=== PATIENT | female | born 1950 | race Caucasian/White ===

== ENCOUNTER 2019-11-18 06:03 | Observation (INO) ==
--- NOTE | 2019-11-16 14:25 | Anesthesiology Consultation ---
Date of Service November 16, 2019 Assessment & Plan (1) Encounter for pre-operative examination: Chart Review Chart Review: Acceptable Risk for Surgery and Patient NOT seen in Pre Admission Testing Per nursing assessment 11/16/19, pt resides in [facility]. Travels to [facility] to visit family. Wears mask in public and uses good hand hygiene. Covid testing 11/15/19= negative History Surgery Operation Date: 11/18/19 10:20 Proposed Procedures p Right Hip Gluteus Medius Repair with Gluteus Cody Tendon Transfer - Bhupendra Ramey Height/Weight Height: 5 ft 3 in Weight: 81.647 kg Allergies Allergy/AdvReac Type Severity Reaction Status Date / Time bee venom protein (honey bee) Allergy Severe Anaphylaxis Verified 11/16/19 13:17 morphine Allergy Intermediate HIVES Verified 11/16/19 13:17 Gumreid-Jqi-Wab Reductase AdvReac Intermediate MUSCLE Verified 11/16/19 13:17 Inhibitor ACHES, JOINT PAIN Medications Home Medications Medication Instructions Recorded Confirmed Last Taken ascorbic acid (vitamin C) [Vitamin 1 g PO QAM 11/16/19 11/16/19 Unknown C] calcium carbonate [Calcium 500] 500 mg PO QAM 11/16/19 11/16/19 Unknown conjugated estrogens [Premarin] 1.25 mg PO HS 11/16/19 11/16/19 Unknown levothyroxine 75 mcg PO QAM 11/16/19 11/16/19 Unknown multivitamin 1 tab PO QAM 11/16/19 11/16/19 Unknown naproxen sodium [Aleve] 220 mg PO BID PRN 11/16/19 11/16/19 Unknown omega 6-[id number]-vkc-fish oil [[place]-3] 1 cap PO QAM 11/16/19 11/16/19 Unknown Past Medical History Medical History History of migraine Hyperlipidemia Hypothyroidism Sinus pressure "HEADACHE" Past Family History Family History Father Family history of esophageal cancer Past Surgical History Surgical History Fusion of spine LUMBAR H/O total hysterectomy History of anesthesia reaction BP DROPS, DIFFICULTY WAKING UP History of cholecystectomy History of colon surgery ? 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 Compared to EKG from August 13, 2001- no significant change per cardio
[~2019-11-18 06:03] MED LIST: CEFAZOLIN 2000MG 2,000 MG/15 ML SYR IV SCH; LR 15ML/HR IV SCH; LR 60ML/HR IV SCH
[2019-11-18] MEDS ORDERED: BUPIVACAINE 0.5 % 5 MG/1 ML PF 10ML VIAL ONE (06:27)
--- NOTE | 2019-11-18 07:17 | History & Physical Bridge Note ---
Date of Service November 18, 2019 History & Physical Bridge Note I have examined the patient, reviewed the History & Physical and in the interval since the performance of the History & Physical I have noted the following changes of clinical significance: no changes noted Patient is aware of COVID-19 risks. Patient is asymptomatic of any COVID-19 symptoms. Patient has been tested for COVID-19.
[2019-11-18] MEDS ORDERED: PROPOFOL IV EMULSION 10 MG/ML 20 ML VIAL IV ONE (07:20)
[2019-11-18] MEDS ORDERED: LIDOCAINE HCL 2% 2 ML VIAL/AMP(20MG/ML) INFIL ONE (07:20)
[2019-11-18] MEDS ORDERED: DEXAMETHASONE SOD INJ 4 MG/ML VIAL ONE (07:20)
[2019-11-18] MEDS ORDERED: ONDANSETRON INJ 2 MG/ML 2 ML VIAL ONE (07:20)
[2019-11-18] MEDS ORDERED: ROCURONIUM BROMIDE 10 MG/ML 5 ML VIAL IV ONE ×2 (07:20→10:00)
[2019-11-18] MEDS ORDERED: MIDAZOLAM HCL 1 MG/ML 2ML VIAL ONE (07:21)
[2019-11-18] MEDS ORDERED: fentaNYL citrate 100 MCG/2 ML VIAL ONE ×2 (07:22)
[2019-11-18] MEDS ORDERED: ePHEDrine sulfate 50 MG/ML AMP IV PRN (07:44)
[2019-11-18] MEDS ORDERED: ATROPINE SULFATE 0.1 MG/ML 10ML SYR IV PRN (07:44)
[2019-11-18] MEDS ORDERED: ONDANSETRON INJ 2 MG/ML 2 ML VIAL IV PRN (07:44)
[2019-11-18] MEDS ORDERED: EPINEPHrine INJ 1 MG/ML AMP ONE (08:56)
[2019-11-18] MEDS ORDERED: BUPIVACAINE 0.5 % 5 MG/1 ML MPF 30ML VIAL ONE (08:56)
[2019-11-18] MEDS ORDERED: ePHEDrine sulfate 50 MG/ML SYR ONE (09:28)
[2019-11-18] MEDS ORDERED: PHENYLEPHRINE 100MCG/ML 5ML SYR ONE (09:28)
[2019-11-18] MEDS ORDERED: NEOSTIGMINE METHYLSULFATE 5 MG/5 ML SYR ONE (11:04)
[2019-11-18] MEDS ORDERED: GLYCOPYRROLATE 0.2 MG/ML VIAL ONE (11:04)
--- NOTE | 2019-11-18 11:23 | Post Operative Brief Note ---
PG Immediate Post Op with CF Date of Surgery November 18, 2019 Pre & Post Diagnosis Operation Date: 11/18/19 07:40 Pre-Op Diagnosis: Tear of Right Gluteus Medius Tendon. Post-Op Diagnosis: Tear of Right Gluteus Medius Tendon. I identified the patient and participated in the time-out.: Yes Procedure Operation Date: 11/18/19 07:40 Actual Procedures p Right Hip Gluteus Medius Repair with Gluteus Cody Tendon Transfer(Right) - Bhupendra Ramey Surgeon Bhupendra Ramey Media/Instructional Designer RAYA Bailon Estimated Blood Loss 25 Findings Consistent with Post-Op Diagnosis Specimens Specimen Description: none per surgeon
[2019-11-18] MEDS: fentaNYL citrate 100 MCG/2 ML VIAL IV PRN ×2 (11:49→11:56)
[2019-11-18] MEDS ORDERED: PROMETHAZINE HCL 6.25 MG in SODIUM CHLORIDE 0.9% 50 ML IV STA (11:50)
[2019-11-18] MEDS: HYDROmorphone INJ 2 MG/ML SYR/VIAL IV PRN ×3 (12:12→12:27)
--- NOTE | 2019-11-18 12:33 | Anesthesiology Progress Note ---
Date of Service November 18, 2019 Anesthesia Post Procedure Vital Signs Vital Signs: Temp Pulse Pulse Resp BP BP Pulse Ox 11/18/19 12:30 80 16 151/74 H 93 11/18/19 12:20 76 18 152/85 H 94 11/18/19 12:10 77 14 160/77 H 94 11/18/19 12:00 78 12 164/76 H 96 11/18/19 11:50 75 13 169/81 H 97 11/18/19 11:43 36.9 C 80 15 183/76 H 95 11/18/19 06:35 36.9 C 82 18 180/84 H 96 Pain Intensity Right Hip: Pain Intensity: 0 Right Upper Leg: Pain Intensity: 7 Transfer of Care Handoff Completed per policy Notes Mental Status: alert / awake / arousable and participated in evaluation Patient Amnestic to Procedure: Yes Nausea / Vomiting: improving with treatment Pain: improving with treatment Airway Patency, RR, SpO2: stable & adequate BP & HR: stable & adequate Hydration State: stable & adequate Anesthetic Complications: no major complications apparent and Pt Satisfied with anesthetic care
--- NOTE | 2019-11-18 12:37 | Operative Report ---
PG Post Operative Report Pre & Post Diagnosis Operation Date: 11/18/19 07:40 Pre-Op Diagnosis: Tear of Right Gluteus Medius Tendon. Post-Op Diagnosis: Tear of Right Gluteus Medius Tendon. I identified the patient and participated in the time-out.: Yes Procedure Operation Date: 11/18/19 07:40 Actual Procedures p Right Hip Gluteus Medius Repair with Gluteus Cody Tendon Transfer(Right) - Bhupendra Ramey Surgeon Bhupendra Ramey Animal Health Technician RAYA Bailon Estimated Blood Loss 25 Findings See Below The greater tuberosity gluteal footprint was essentially empty with significant enthesopathy. The medius tendon was atrophic and retracted however did not have enough excursion to restore the footprint. The muscle belly appeared to be healthy. The minimus had evidence of tendinopathy but was inserted well. The medius tendon was repaired using a running locking FiberWire stitch to a proximal row with fiber tape used as a speed bridge double row construct that incorporated a sling of the anterior third of the gluteus cody. 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 She was referred to me as a third opinion. She presented with a Trendelenburg gait and substantial hip abduction weakness. 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 We discussed treatment options and given her significant symptoms of hip pain and sensation of instability as well as gait alteration, I did recommend open gluteus medius repair with likely gluteus cody transfer for her chronic abductor insufficiency. We discussed risks and benefits in detail as outlined in the preoperative clinic note. Informed consent was obtained. Description of Procedure On the day of surgery, the patient was greeted in the preoperative holding area. The informed consent was reviewed and confirmed by myself and the patient. The patient identified the surgical site and was marked by me. The patient was then turned over to anesthesia. She was taken to the operating place upon the OR table. Anesthesia was induced and the airway was secured. She was then placed in a left lateral decubitus position for right hip surgery. The Stulberg lateral positioner was used. An axillary roll was placed. All bony prominences were well-padded. The right lower extremity was then prepped and draped in the usual sterile fashion for open hip surgery. Surgical timeout was called by the circulating nurse and verified all present. Antibiotics have been infused and equipment is available and functional. We proceeded with anesthetizing the skin with 30 cc of quarter percent Marcaine with epinephrine. Skin incision was made for a standard posterior approach centered over the greater trochanter. Sharp dissection was carried down through fat with hemostasis achieved with electrocautery. The IT band was cleared of fat by approximately 1 cm in preparation for closure. Full-thickness incision was made down through the IT band and carried to the gluteus fascia. A split was made in the anterior one third and junction with the posterior two thirds. This exposed the greater trochanter and retracted medius medius tendon sleeve. There was abundant bursal fluid throughout this area which was evacuated. The medius was scarred on the underside of the gluteus cody. The minimus had areas of tendinopathy but had a preserved insertion anteriorly. The medius tendon was mobilized on the superficial and deep sides. There is evidence substantial substance that was enough to clamp with an Allis clamp and attempt excursion to the trochanter. It did reach out and cover majority of the footprint but had significant tendinopathy. The plan was then to repair the gluteus medius with an overlap of gluteus cody sling. The greater trochanter was then debrided of its chronic and these uropathy. A bleeding bony bed was made throughout the gluteal footprint. The gluteal sling inferiorly was intact. The anterior one third of the gluteus cody was then incised and freed up for eventual transfer. Once the bony bed was prepped, the proximal row of our fixation was inserted. This consisted of a 4.75 bio composite swivel lock anchor by [employer] loaded with fiber tape sutures that were swedged with a needle. A posterior proximal anchor was placed in a similar fashion in the posterior superior aspect of the gluteus footprint. The FiberWire safety stitches were passed proximally into the gluteus medius fascia on the underside using a running locking stitch that ended at the proximal footprint margin of the tendon. This was performed the posterior and anterior anchors. We then used the needle for the fiber tape and passed it back through this running locking stitch for Dave-Glenn effect. The fiber tape was also carried to the gluteus cody sling tenderness footprint that was planned. The tails of the fiber tape were then . The distal edge of the gluteus medius tendon was captured using fiber loop sutures to extend it down to the distal row. One tail of the fiber loop and one anterior fiber tape and one posterior fiber tape were then captured in a another 4.75 swivel lock. This was then deployed into the anterior and distal position at the margin of the greater trochanter. The vastus lateralis was elevated to expose this area of the greater trochanter. Longitudinal incision was made through it for later repair. The remaining suture tails of 2 fiber tapes and one fiber loop for the distal edge of the posterior aspect of the mediastinum were then captured on another 4.75 swivel lock which was deployed in the posterior and lateral position. The safety sutures were removed from these lateral anchors. The vastus lateralis flaps were then reapproximated over the anchor positions. PDS suture was used for this repair and was also repaired to the lateral aspect of the gluteal insertion. This covered the end well. Did have to debride significant matted bony enthesopathy from this area to decompress it. Then began our closure. FiberWire suture was used to approximate the tension fascia nitesh posterior edge to the remainder the gluteus cody fascia. Once 2 Fiber[address] stitches were in place for security, 0 PDS was used in running locking fashion up and down the fascia to close it in its entirety. This was carried down to reapproximate the IT band edges over the lateral aspect of greater trochanter. There was secure fixation and complete closure. We thoroughly irrigated the soft tissue before deep closure and after this deep layer. Deep fatty layer was approximate using 0 Vicryl suture followed by another layer of 0 Vicryl suture in an interrupted fashion. Skin was approximated 2-0 Vicryl in the subcuticular layer followed by shannon. Wound was dressed with a Judi battery-powered wound suction device. A standard postoperative hip abduction brace was applied. It had been previously fitted in clinic. Patient tolerated procedure well, was extubated the operating room after a short bout of nausea, and transferred to the PACU in stable condition. Urinary catheter was placed and removed to her urinating excessively when we transferred onto the [facility]. Disposition: She will be discharged home when she meets same-day criteria. She will be flatfoot weightbearing as instructed preoperatively by physical therapy in her home. She should use the brace full-time until follow-up clinic. Dressing can come down in 7 to 10 days when the Judi VAC indicates. She was discharged on routine postoperative pain medication and aspirin for DVT prophylaxis. Physician chemistry research assistant attestation: Cullen Bailon PA-C was present and scrubbed for the duration of the case. He was essential to prepping/draping, patient positioning, retraction, and assistance with wound closure. I attest to the content of the Intraoperative Record and any orders documented therein. Any exceptions are noted below.
[2019-11-18] MEDS ORDERED: NAPROXEN 250 MG TAB PO PRN (17:14)
[2019-11-18] MEDS ORDERED: OXYCODONE HCL IR 5 MG TAB (IMMEDIATE RELEASE) PO PRN (17:14)
[2019-11-18] MEDS ORDERED: HYDROmorphone HCL 2 MG TAB PO PRN (17:14)
[2019-11-18] MEDS ORDERED: ACETAMINOPHEN 325 MG TAB PO PRN (17:14)
[2019-11-18] MEDS ORDERED: HYDROmorphone INJ 1 MG/ML SYRINGE IV PRN (19:02)
[2019-11-18] MEDS: ONDANSETRON INJ 2 MG/ML 2 ML VIAL IV PRN (19:24)
--- NOTE | 2019-11-18 19:31 | Post Operative Brief Note ---
PG Immediate Post Op with CF Date of Surgery November 18, 2019 Mariajose is a pleasant 69 year old female who is s/p right hip gluteus medius rep air with gluteus cody tendon transfer. Patient is currently experiencing nausea but states her pain is well controlled. She has had previous nausea related issues with post surgical anesthesia. She states turning her head quickly increases her nausea. She plans to lay low for the rest of the night. She was accompanied by her daughter upon visiting with her today. She denies any numbness or tingling in her right lower extremity. She was relieved to hear that the procedure went well with no complications. She is content with staying in the hospital until her nausea is under control. She was given Zofran in the PACU. PE: Right lower extremity: Patient is able to flex/extend her toes and plantarflex/dorsiflex her foot without difficulty. Light touch sensation grossly intact. Dressings remained in place but had no evidence of overlying drainage/discharge. Pre & Post Diagnosis Operation Date: 11/18/19 07:40 Pre-Op Diagnosis: Tear of Right Gluteus Medius Tendon. Post-Op Diagnosis: Tear of Right Gluteus Medius Tendon. I identified the patient and participated in the time-out.: Yes Procedure Operation Date: 11/18/19 07:40 Actual Procedures p Right Hip Gluteus Medius Repair with Gluteus Cody Tendon Transfer(Right) - Bhupendra Ramey Surgeon Bhupendra Ramey MD Telephone Quotation Clerk RAYA Bailon Estimated Blood Loss 25 Findings Consistent with Post-Op Diagnosis Specimens Specimen Description: none per surgeon Drains Moon Catheter (16 spanish moon (straight cath) placed prior to transfer to recovery room. 700ml clear yellow urine obtained) Anesthesia Type General
[2019-11-18] MEDS: ESTROGENS, CONJUGATED 0.625 MG TAB PO SCH (20:41)
[2019-11-18] MEDS: OXYCODONE HCL IR 5 MG TAB (IMMEDIATE RELEASE) PO PRN (22:26)
[2019-11-19] MEDS: HYDROmorphone INJ 0.5 MG/0.5 ML SYR IV PRN ×2 (00:14→03:28)
[2019-11-19] MEDS: LEVOTHYROXINE SODIUM 75 MCG TABLET PO SCH (05:47)
[2019-11-19] MEDS: OMEGA-3 (PURIFIED FISH OIL) 1 GM CAP PO SCH (07:44)
[2019-11-19] MEDS: CALCIUM CARBONATE 1250MG TAB PO SCH (07:44)
[2019-11-19] MEDS: ASCORBIC ACID 500 MG TAB PO SCH (07:44)
[2019-11-19] MEDS: MULTIVITAMIN TAB PO SCH (07:44)
--- NOTE | 2019-11-19 07:44 | Anesthesiology Progress Note ---
Date of Service November 19, 2019 Anesthesia Post Procedure Vital Signs Vital Signs: Temp Pulse Pulse Resp BP BP Pulse Ox 11/19/19 04:05 36.6 C 72 14 112/61 97 11/19/19 00:05 36.6 C 78 16 136/66 96 11/18/19 17:00 79 18 136/74 96 11/18/19 16:00 83 18 136/70 96 11/18/19 15:00 81 16 136/67 96 11/18/19 14:00 36.3 C L 76 16 139/71 94 11/18/19 13:30 36.3 C L 77 16 143/70 H 93 11/18/19 13:00 36.3 C L 82 16 154/73 H 93 11/18/19 12:40 36.0 C L 80 12 152/73 H 93 11/18/19 12:30 80 16 151/74 H 93 11/18/19 12:20 76 18 152/85 H 94 11/18/19 12:10 77 14 160/77 H 94 11/18/19 12:00 78 12 164/76 H 96 11/18/19 11:50 75 13 169/81 H 97 11/18/19 11:43 36.9 C 80 15 183/76 H 95 Pain Intensity Right Hip: Pain Intensity: 0 Right Upper Leg: Pain Intensity: 5 Notes Mental Status: alert / awake / arousable and participated in evaluation Patient Amnestic to Procedure: Yes Nausea / Vomiting: adequately controlled (nausea without emesis yesterday. Zofran effective.) Pain: adequately controlled Airway Patency, RR, SpO2: stable & adequate BP & HR: stable & adequate Hydration State: stable & adequate Anesthetic Complications: no major complications apparent
--- NOTE | 2019-11-19 08:06 | Orthopedic Progress Note ---
Date of Service November 19, 2019 Assessment & Plan (1) Tear of right gluteus medius tendon: Continue plan of care From an orthopedic perspective, patient is clear to return home. Patient would like to reassess her pain level in a few hours and go from there. She understands that oral pain medication was prescribed to her pharmacy. She will continue icing her hip. Continue Flat foot weight bearing PT will likely visit with her today Her dressings and wound vac should remain in place 3 days s/p unless significant drainage/discharge is evident When she returns home, her two daughters will be there to help her She will follow up in 2 weeks in our outpatient clinic Present on Admission?: Yes Swetha Billy is a pleasant 69 year old female who is one day s/p right hip gluteus medius repair with gluteus bobbi tendon transfer. Patient states her pain increased since yesterday evening. She was given oxycodone twice through the night. This did help relieve her pain. Her nausea is starting to subside. She did get out of bed last night to go to the bathroom. She had mild difficulty getting out of bed and experienced increased pain with attempted flat foot weight bearing. She has not yet been seen by PT. She denies numbness or tingling. She has been icing her hip. She would like to lay low the rest of the day and will evaluate her pain level before deciding to go home. She will be accompanied by her daughters when she goes home. Review of Systems Constitutional: no fever, no chills and no problem reported Eyes: as per Subjective / HPI; no problem reported Ear, Nose, Mouth, Throat: as per Subjective / HPI; no problem reported Respiratory: as per Subjective / HPI; no problem reported Cardiovascular: no edema and no problem reported Gastrointestinal: no nausea, no vomiting and no problem reported Musculoskeletal: as per Subjective / HPI Integumentary: as per Subjective / HPI; no problem reported Neurologic: no tingling, no paresthesia and no problem reported Psychiatric: no problem reported Endocrine: as per Subjective / HPI Hematologic / Lymphatic: as per Subjective / HPI Allergy / Immunological: no problem reported Physical Exam Musculoskeletal: General: Patient was laying comfortably in bed, icing her right hip upon arrival. She is A+Ox3, in no acute distress. Right lower extremity: Patient can plantarflex/dorsiflex her ankle without difficulty. Her EHL is intact. Light touch sensation grossly intact. She can perform a straight leg raise with difficulty. Her dressings and wound vac remained in place for the exam. There was no evidence of overlying discharge. Results & Data ([facility]) Vital Signs (Past 12 Hours) Vital Signs Temp Pulse Resp BP Pulse Ox 11/19/19 04:05 36.6 C 72 14 112/61 97 11/19/19 00:05 36.6 C 78 16 136/66 96 PG Care Time/CCT Total # of Minutes Spent Total Time Spent with Patient: Total time spent is greater than 50% in coordination of care (as documented) at patient's floor/unit and/or counseling patient: Coding Level of Care Code 12785 Subseq Obs Care Lvl 1 Diagnoses Tear of right gluteus medius tendon S76.011A
[2019-11-19] MEDS: ONDANSETRON INJ 2 MG/ML 2 ML VIAL IV PRN (09:41)
[2019-11-19] MEDS: OXYCODONE HCL IR 5 MG TAB (IMMEDIATE RELEASE) PO PRN ×3 (10:43→23:08)
[2019-11-19] MEDS ORDERED: POLYETHYLENE (MIRALAX) 17 GM PACK PO PRN (17:50)
[2019-11-19] MEDS ORDERED: ONDANSETRON 4 MG OD TAB PO PRN (17:50)
[2019-11-19] MEDS ORDERED: PROMETHAZINE HCL 6.25 MG in SODIUM CHLORIDE 0.9% 50 ML IV PRN (17:50)
[2019-11-19] MEDS: ACETAMINOPHEN 500 MG TAB PO SCH (17:56)
[2019-11-19] MEDS: ESTROGENS, CONJUGATED 0.625 MG TAB PO SCH (20:31)
[2019-11-19] MEDS ORDERED: DOCUSATE SODIUM 100 MG CAP PO SCH (21:00)
--- NOTE | 2019-11-19 22:32 | Discharge Summary ---
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 wound vac incional dressing functional. DNVI. Constitutional well developed and well nourished; no acute distress and not intoxicated appearing ENMT external ear and nose normal, oropharynx normal Respiratory normal respiratory effort; no respiratory distress Cardiovascular Extremities: normal capillary refill; no edema Skin no rashes, warm and dry Psychiatric A+Ox3, euthymic affect Discharge Data Allergies Allergy/AdvReac Type Severity Reaction Status Date / Time bee venom protein (honey bee) Allergy Severe Anaphylaxis Verified 11/18/19 06:23 morphine Allergy Intermediate HIVES Verified 11/18/19 06:23 Jgflrts-Aty-Hwn Reductase AdvReac Intermediate MUSCLE Verified 11/18/19 06:23 Inhibitor ACHES, JOINT PAIN Procedures Performed Operation Date: 11/18/19 07:40 Actual Procedures p Right Hip Gluteus Medius Repair with Gluteus Cody Tendon Transfer(Right) - [facility] Course (1) Tear of right gluteus medius tendon: Admitted following uncomplicated surgery for postoperative nausea related to intolerance of anesthetics and pain medications. Initial PT eval showed concern for home safety, so she remained for repeat eval, persistent nausea and need for parenteral pain management. 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 BRACE; The brace should be worn for all ambulatory activities - whenever you are not lying or resting in a seated position. It can be removed for careful hygiene. you do not need to sleep in the brace. WEIGHTBEARING: Flat foot weightbearing right leg x 4 weeks, then 50% weight bearing for 2 weeks, then WBAT at 6 weeks. Flat foot weightbearing means no transfer of weight on the affected extremity. You may place your foot on the ground, but do not transfer weight or stride on the leg. WOUND CARE: Leave the dressing in place and keep the area clean and dry. You may carefully cleanse around the dressing and can let soap and water gently run around the dressing. Do not soak it. The Preveena wound vac dressing has a battery pack that lasts approximately one week. When the dressing is no longer firm from suction after 7 days, you may peel it away. DO NOT REMOVE ANY ROBERT. After removing your dressing, you may begin to s hower normally. Do not soak the incision. Allow gentle soap and water to run over the wound(s) and pat dry. Please cover the incision(s) with a clean, dry dressing, as needed. Do not use any ointments or topical medications unless directed by your surgeon. Do not submerse the incisions in water no pools, oceans, lakes, jacuzzis, bathtubs, etc for at least 3 weeks. PAIN CONTROL Use ice over the incision site and back of the hip regularly to help with pain control. Use for 30 minutes per hour. MEDICATIONS: 1. Oxycodone (OxyIR) 1-2 tablet(s) orally every 4 hours for pain as needed. Use with Tylenol. Begin tapering OxyIR as soon as possible: reduce from 2 to 1 pills per dose, then spread out the doses over greater time intervals, then try to use only for therapy or for comfort while sleeping. Continue to use regular Tylenol until pain subsides. 2. Tylenol (325mg): 3 tablets every 8 hours orally. Regular dosing of Tylenol is an important part of your baseline pain control. Do not taper Tylenol until you have successfully tapered off of regular OxyIR. Do not take more than 3000mg of Tylenol per day. 3. Zofran 1 tablet orally every 6 hours as needed for nausea related to anesthesia, pain, and narcotic medications 4. Aspiring 325 mg: take one tablet every day for 30 days to reduce the risk of blood clots. Over the counter stool softener - narcotics can cause constipation. 1. Colace (100mg): take 1-2 tabs twice daily, as needed, to avoid constipation from OxyIR or other narcotics. FOLLOWUP: 1. Ortho Clinic: You should be seen in 10-14 days. Please call immediately to schedule if you do not have an appointment. Pending Studies at Discharge: No Stand-Alone Forms: My [facility], Opioid Pain Management Medications and DC Order Prescriptions: New aspirin 325 mg tablet 325 mg PO DAILY Qty: 30 RF: 0 ondansetron HCl [Zofran] 4 mg tablet 4 mg PO DAILY PRN (Reason: nausea and vomiting) Qty: 10 RF: 0 oxycodone 5 mg tablet 5 - 10 mg PO Q4H MDD 6 tablets PRN (Reason: pain) Qty: 20 RF: 0 Continued multivitamin Tablet 1 tab PO QAM RF: 0 ascorbic acid (vitamin C) [Vitamin C] 1,000 mg Tablet 1 g PO QAM RF: 0 levothyroxine 75 mcg Tablet 75 mcg PO QAM RF: 0 calcium carbonate [Calcium 500] 500 mg calcium (1,250 mg) Tablet 500 mg PO QAM RF: 0 naproxen sodium [Aleve] 220 mg Tablet 220 mg PO BID PRN (Reason: Pain) RF: 0 Premarin 1.25 mg Tablet 1.25 mg PO HS RF: 0 Azle-3 350 mg-235 mg- 90 mg-597 mg Capsule,Delayed Release(Dr/Ec) 1 cap PO QAM RF: 0 Discharge Orders: Discharge Order (Routine); Ordered 11/20/19 Ordered By: Ryne Caldwell/Other Patient Handouts: Preventing Deep Vein Thrombosis Admission Data Admit Date/Time: 11/18/19 17:14 Attending Provider: Bhupendra Ramey Admit Provider: Bhupendra aRmey Primary Care Provider: Savi Persaud Other Providers: [facility] Other Interventions: Discharge Summary Assessment (RN) Last Done: 11/20/19 09:29 DC Date/Time DO NOT enter until pt leaves facility: 11/20/19 13:45 Coding Level of Care Code D/C Day Management <30 mins Diagnoses Tear of right gluteus medius tendon S76.011A
[2019-11-20] MEDS: ACETAMINOPHEN 500 MG TAB PO SCH ×2 (01:50→09:35)
[2019-11-20] MEDS: LEVOTHYROXINE SODIUM 75 MCG TABLET PO SCH (04:54)
[2019-11-20] MEDS: OXYCODONE HCL IR 5 MG TAB (IMMEDIATE RELEASE) PO PRN (05:51)
[2019-11-20 06:09] LABS: Basophils # (auto) 0.03 K/uL (0-0.2); Basophils % (auto) 0.3 %; Eosinophils # (auto) 0.33 K/uL (0-0.5); Eosinophils % (auto) 3.7 %; Hemoglobin 11.4 g/dL (12.0-16.0); Immature Granulocytes # (auto) 0.02 K/uL (0.00-0.02); Immature Granulocytes % (auto) 0.2 %; Lymphocytes # (auto) 1.58 K/uL (1.2-3.4); Lymphocytes % (auto) 17.6 %; Mean Corpuscular Hemoglobin 29.5 pg (25-34); Mean Corpuscular Hgb Conc 33.5 g/dL (32-36); Mean Corpuscular Volume 87.9 fL (80-100); Mean Platelet Volume 8.9 fL (7.4-10.4); Monocytes % (auto) 7.8 %; Neutrophils # (auto) 6.34 K/uL (1.4-6.5); Neutrophils % (auto) 70.4 %; Platelet Count 241 K/uL (130-400); RDW Coefficient of Variation 13.3 % (11.5-14.5); RDW Standard Deviation 42.6 fL (36.4-46.3); Red Blood Count 3.87 M/uL (4.2-5.4)
[2019-11-20 06:27] LABS: BUN Creatinine Ratio 22.8 (10-20); Calcium 7.9 mg/dl (8.5-10.1); Creatinine Clr Calc Pharmacy 70.6 ml/min; Est GFR (African American) 93.4; Est GFR (Non-African American) 80.6; Potassium 3.9 mmol/L (3.5-5.1)
--- NOTE | 2019-11-20 07:49 | Orthopedic Progress Note ---
Date of Service November 20, 2019 Assessment & Plan (1) Tear of right gluteus medius tendon: Overall she continues to improve. She is on aspirin for DVT prophylaxis. She can be up with physical therapy later this morning. She is flatfoot weightbearing on the right hip. She has a hip abduction brace in place. She feels safe returning home today. She says her daughter can help take care of her. She really does not want to go to inpatient rehab unless absolutely necessary. I think if she participates well with physical therapy today then she can be discharged to home. She can follow-up with orthopedics as scheduled in 2 weeks. Present on Admission?: Yes Subjective Mariajose was seen and examined at bedside this morning. Overall she is doing well. Her nausea is subsiding. She has less pain in her hip than she had yesterday. She is much more optimistic about her outcome. She has no new complaints. Physical Exam Musculoskeletal: On physical examination of the right hip, the Judi VAC dressing is to suction. Her leg lengths are equal. She has active dorsiflexion and plantarflexion of her right ankle. She has a hip abduction brace in place. Results & Data ([facility]) Vital Signs (Past 12 Hours) Vital Signs Temp Pulse Resp BP Pulse Ox 11/20/19 06:10 36.7 C 73 16 130/73 93 11/19/19 23:28 36.7 C 77 16 139/72 95 PG Care Time/CCT Total # of Minutes Spent Total Time Spent with Patient: Total time spent is greater than 50% in coordination of care (as documented) at patient's floor/unit and/or counseling patient: Coding Level of Care Code None Diagnoses Tear of right gluteus medius tendon S76.011A
[2019-11-20] MEDS: ASCORBIC ACID 500 MG TAB PO SCH (08:49)
[2019-11-20] MEDS: OMEGA-3 (PURIFIED FISH OIL) 1 GM CAP PO SCH (08:49)
[2019-11-20] MEDS: MULTIVITAMIN TAB PO SCH (08:49)
[2019-11-20] MEDS: CALCIUM CARBONATE 1250MG TAB PO SCH (08:49)
[2019-11-20] MEDS ORDERED: DOCUSATE SODIUM/SENNA 50/8.6MG TAB PO SCH (09:00)
[2019-11-20] MEDS ORDERED: PSYLLIUM 58.6% POWDER PACKET PO SCH (09:00)
[2019-11-20] MEDS ORDERED: ASPIRIN 325 MG ECTAB PO SCH (09:00)
== END 2019-11-20 13:45 | disposition home or self-care (01) ==
LOC: ASU 06:03 → 3E 06:03